=== PATIENT | female | born 1995 | race Caucasian/White ===

== ENCOUNTER 2022-05-03 04:20 | Emergency (ER) | payer BC ==
[2022-05-03 08:15] VITALS: RESP 16
[2022-05-03 08:16] LABS: BASO % 0.2 % (0-2.0); HEMATOCRIT 37.4 % (32.4-45.2); LYMPH % 9.4 % (8-40); MCH 27.7 pg (25.7-33.7); MEAN CELL VOLUME 86.5 fl (80-96); MEAN PLT VOLUME 9.3 fl (7.5-11.1); MONO % 10.1 % (3.8-10.2); NEUT % 80.3 % (42.8-82.8); PLATELET COUNT 275 10^3/uL (134-434); RBC 4.32 M/mm3 (3.60-5.2); RDW 12.7 % (11.6-15.6); WHITE BLOOD COUNT 14.4 K/mm3 (4.0-10.0)
[2022-05-03 08:23] LABS: CALCIUM 9.1 mg/dL (8.5-10.1)
[2022-05-03 08:24] LABS: ALBUMIN 3.7 g/dl (3.4-5.0); BLOOD UREA NITROGEN 6.4 mg/dL (7-18)
[2022-05-03 08:27] LABS: CREATININE 0.6 mg/dL (0.55-1.3)
[2022-05-03 08:29] LABS: BILIRUBIN,TOTAL 0.4 mg/dL (0.2-1); TOT PROT 7.5 g/dl (6.4-8.2)
[2022-05-03] MEDS ORDERED: CEFTRIAXONE 2 MG in DEXTROSE 5%-WATER - 50 ML IVPB ONE (13:32)
[2022-05-03] MEDS ORDERED: CLINDAMYCIN 600MG PREMIX IVPB 600 MG/50 ML BAG IVPB ONE ×2 (13:33→13:47)
[2022-05-03] MEDS ORDERED: CEFTRIAXONE 2 GM/100 ML BAG IVPB ONE (13:47)
[2022-05-03 14:59] VITALS: BP 108/56; PULSE 72
== END 2022-05-03 15:32 | disposition home or self-care (01) ==
LOC: JER 04:20
DX: J36 Peritonsillar abscess (principal)
CPT/HCPCS: 36415; 70491-TC; 80053; 84703; 85025; 99284-25; Q9967